=== PATIENT | female | born 1975 | race Caucasian/White ===

== ENCOUNTER → 2016-04-30 | Outpatient (CLI) | payer BC, OTHER ==
[2016-04-30 12:40] LABS: CH 30.4; CHCM 33.1; HCT 37.3 % (34.0-46.0); HDW 2.84; HGB 11.9 gm/dL (11.4-16.0); MCH 29.4 pg (25.0-35.0); MCHC 31.8 g/dL (31.0-37.0); MCV 92.6 fL (80.0-100.0); Mean Platelet Volume 8.1; RBC 4.03 m/uL (3.80-5.40); RDW 14.3 % (11.5-15.5); WBC 12.7 k/uL (3.8-10.6)
[2016-04-30 12:43] LABS: ALT 25 U/L (9-52); AST 17 U/L (14-36); Blood Urea Nitrogen 6 mg/dL (7-17); Non-African American GFR(MDRD) >60 (>60 ml/min/1.73 sqM)
[2016-05-07 15:47] LABS: Mis test requested (Non-blood) 24hr Tot Protein Ur
== END | disposition home or self-care (01) ==
LOC: LABWHC1 11:48
PROVIDERS: ATTEND Obstetrics & Gynecology
DX: O16.9 Unspecified maternal hypertension, unspecified trimester (principal); Z3A.00 Weeks of gestation of pregnancy not specified
CPT/HCPCS: 36415; 81050; 82565; 82570; 84156; 84450; 84460; 84520; 85027

== ENCOUNTER → 2016-05-03 | Outpatient (CLI) | payer BC, OTHER ==
[2016-05-03 12:08] LABS: Glucose 3 Hour, Gest 110 mg/dL
== END | disposition home or self-care (01) ==
LOC: LABWHC1 07:35
PROVIDERS: ATTEND Obstetrics & Gynecology
DX: O99.89 Other specified diseases and conditions complicating pregnancy, childbirth and the puerperium (principal); R73.02 Impaired glucose tolerance (oral); Z3A.00 Weeks of gestation of pregnancy not specified
CPT/HCPCS: 36415; 82951; 82952

== ENCOUNTER → 2016-05-20 | Outpatient (CLI) | payer BC, OTHER ==
[2016-05-20 17:04] LABS: Basophils % (A) 0 %; CH 30.3; Eosinophils # (A) 0.1 k/uL (0-0.7); Eosinophils % (A) 0 %; HDW 2.78; HGB 12.1 gm/dL (11.4-16.0); Luc # (Auto) 0.14; Luc % (Auto) 1; Lymphocytes # (A) 1.1 k/uL (1.0-4.8); Lymphocytes % (A) 9 %; MCH 30.9 pg (25.0-35.0); MCHC 33.5 g/dL (31.0-37.0); MCV 92.2 fL (80.0-100.0); Mean Platelet Volume 7.8; Monocytes # (A) 0.6 k/uL (0-1.0); Monocytes % (A) 5 %; Neutrophils # (A) 9.7 k/uL (1.3-7.7); Neutrophils % (A) 84 %; RDW 14.4 % (11.5-15.5); WBC 11.6 k/uL (3.8-10.6); WBC (Perox) 12.16
[2016-05-20 17:31] LABS: ALT 26 U/L (9-52); AST 20 U/L (14-36); Blood Urea Nitrogen 10 mg/dL (7-17); Non-African American GFR(MDRD) >60 (>60 ml/min/1.73 sqM); Total Bilirubin 0.3 mg/dL (0.2-1.3)
[2016-05-21 11:21] LABS: Bilirubin, Delta 0.2 mg/dL (0.0-0.2)
== END | disposition home or self-care (01) ==
LOC: LABWHC1 16:14
PROVIDERS: ATTEND Obstetrics & Gynecology
DX: O14.93 Unspecified pre-eclampsia, third trimester (principal); Z3A.00 Weeks of gestation of pregnancy not specified
CPT/HCPCS: 36415; 81050; 82247; 82248; 82565; 84156; 84450; 84460; 84520; 85025

== ENCOUNTER → 2020-02-10 | Outpatient (CLI) | payer BC, OTHER | END | disposition home or self-care (01) | LOC: LABWHC1 12:56 | PROVIDERS: ATTEND Family Medicine | DX: Z20.828 Contact with and (suspected) exposure to other viral communicable diseases (principal) | CPT/HCPCS: U0003; C9803 ==

== ENCOUNTER → 2020-02-28 | Outpatient (CLI) | payer BC, OTHER ==
--- NOTE | 2020-02-28 13:04 | XR ---
EXAMINATION TYPE: XR chest 2V DATE OF EXAM: 02/28/2020 COMPARISON: NONE HISTORY: Cough for one month and sore throat today. TECHNIQUE: Frontal and lateral views of the chest are obtained. FINDINGS: There is no focal air space opacity, pleural effusion, or pneumothorax seen. The cardiac silhouette size is within normal limits. The osseous structures are intact. There is LAP-BAND devic e epigastric region noted. IMPRESSION: No suspicious acute pulmonary process.
== END | disposition home or self-care (01) ==
LOC: RADXRMAIN 12:37
PROVIDERS: ATTEND Nurse Practitioner Family
DX: R05 Cough (principal)
CPT/HCPCS: 71046

== ENCOUNTER → 2023-05-07 | Outpatient (CLI) | payer OTHER ==
--- NOTE | 2023-05-07 18:21 | US ---
EXAMINATION TYPE: US pelvic complete DATE OF EXAM: 05/07/2023 COMPARISON: NONE CLINICAL INDICATION: Female, 47 years old with history of N94.6 DYSMENORRHEA, UNSPECIFIED; D25.9; kno wn fibroid for years, patient is now having heavy cycles every month and painful cramping, TECHNIQUE: TA. Transabdominal sonographic images of the pelvis were acquired. Transvaginal sonogra phic images would not be of benefit due to enlarged shadowing fibroid Date of LMP: 2 weeks ago EXAM MEASUREMENTS: Uterus: 13.5 x 8.0 x 9.0 cm Endometrial Stripe: 0.9 cm Right Ovary: 2.8 x 1.8 cm Left Ovary: 2.6 x 2.1 c 1.8 cm 1. Uterus: Anteverted large shadowing left sided fundal fibroid = 5.1 x 5.1 x 5.0cm 2. Endometrium: wnl 3. Right Ovary: wnl 4. Left Ovary: wnl 5. Bilateral Adnexa: wnl 6. Posterior cul-de-sac: wnl IMPRESSION: 1. Uterine fibroid which may contain calcification and shadowing.
== END | disposition home or self-care (01) ==
LOC: RADUSWWP 13:27
PROVIDERS: ATTEND Family Medicine
DX: N94.6 Dysmenorrhea, unspecified (principal); D25.9 Leiomyoma of uterus, unspecified
CPT/HCPCS: 76856

== ENCOUNTER → 2024-01-30 | Outpatient (CLI) | payer OTHER ==
--- NOTE | 2024-01-30 15:48 | CT ---
EXAMINATION TYPE: CT abdomen pelvis w con CT DLP: 1964 mGycm, Automated exposure control for dose reduction was used. DATE OF EXAM: 01/30/2024 3:29 PM COMPARISON: CT abdomen pelvis 12/07/2013, pelvic ultrasound 05/07/2023 CLINICAL INDICATION:Female, 48 years old with history of R19.00 INTRA-ABD AND PELVIC SWELLING; Nausea and vomiting almost every morning x2 years TECHNIQUE: Standard CT of the abdomen and pelvis following the administration of 100 cc of Isovue 3 00 IV contrast material and oral contrast. Coronal and sagittal reformats were performed. FINDINGS: LOWER CHEST: Unremarkable ABDOMEN LIVER: Unremarkable GALLBLADDER AND BILE DUCTS: Unremarkable. PANCREAS: Unremarkable. SPLEEN: Unremarkable. ADRENAL GLANDS: Unremarkable. KIDNEYS AND URETERS: No evidence of hydronephrosis or renal calculus. The kidneys enhance symmetrical ly. Left renal lower pole 1.2 cm cyst. Contrast is demonstrated within both collecting systems on the delayed phase. PELVIS BLADDER: Incompletely distended but grossly unremarkable. REPRODUCTIVE: Bulky anteverted uterus with peripheral calcified myometrial left uterine body 5.5 cm f ibroid. Uterus measures 12.2 x 9.3 x 9.3 cm in AP, TV, CC dimensions. Right ovarian 1.8 cm peripheral ly enhancing likely corpus luteal cyst. ABDOMEN & PELVIS STOMACH AND BOWEL: Postsurgical changes from gastric lap band with reservoir in the epigastric left a nterior abdominal wall. Enteric contrast reaches the ileocecal junction. The appendix is within karan l limits. No evidence of bowel obstruction. PERITONEUM: No evidence of pneumoperitoneum or free fluid. VASCULATURE: No evidence of aortic aneurysm. MUSCULOSKELETAL: No acute osseous abnormalities. Sclerosis around both SI joints. Left L4-L5 facet maria r int arthropathy. LYMPH NODES: No evidence for lymphadenopathy. SOFT TISSUE/ABDOMINAL WALL: Unremarkable IMPRESSION: 1. No acute abdominal/pelvic process. 2. Fibroid changes of the uterus. [facility], , 01/30/2024 3:45 PM
== END | disposition home or self-care (01) ==
LOC: RADCTMAIN 13:18
PROVIDERS: ATTEND Surgery Plastic and Reconstructive Surgery
DX: D25.9 Leiomyoma of uterus, unspecified (principal); R19.00 Intra-abdominal and pelvic swelling, mass and lump, unspecified site
CPT/HCPCS: 74177; Q9967

== ENCOUNTER 2024-02-02 06:40 | Day surgery (SDC) | payer OTHER ==
[~2024-02-02 06:40] MED LIST: LIDOCAINE 1% (10MG/ML) FOR IV START INTRADERMA PRN
--- NOTE | 2024-02-02 06:59 | P.GSHP ---
History of Present Illness H&P Date: 02/02/24 CHIEF COMPLAINT: GERD HISTORY OF PRESENT ILLNESS: The patient is a 48-year-old female who presents reports gastroesophageal reflux disease. Upper endoscopy was offered for further evaluation and management. PAST MEDICAL HISTORY: Please see list. PAST SURGICAL HISTORY: Please see list. MEDICATIONS: Please see list. ALLERGIES: Please see list. SOCIAL HISTORY: No illicit drug use FAMILY HISTORY: No reports of Crohn disease or ulcerative colitis. REVIEW OF ORGAN SYSTEMS: CONSTITUTIONAL: No reports of fevers or chills. GI: Denies any blood in stools or constipation. PHYSICAL EXAM: VITAL SIGNS: Stable GENERAL: Well-developed and pleasant in no acute distress. HEENT: No scleral icterus. Extraocular movements grossly intact. Moist buccal mucosa. NECK: Supple without lymphadenopathy. CHEST: Unlabored respirations. Equal bilateral excursions. CARDIOVASCULAR: Regular rate and rhythm. Distal 2+ pulses. ABDOMEN: Soft, nondistended. MUSCULOSKELETAL: No clubbing, cyanosis, or edema. ASSESSMENT: 1. Gastroesophageal reflux disease PLAN: 1. Recommend proceeding with an upper endoscopy Past Medical History Past Medical History: Hypertension Additional Past Medical History / Comment(s): frequent N/V in the morning, has been going on for couple years, hx. anemia, RLS History of Any Multi-Drug Resistant Organisms: None Reported Past Surgical History: Bariatric Surgery, Hernia Repair Additional Past Surgical History / Comment(s): lap band, cone biopsy Past Anesthesia/Blood Transfusion Reactions: No Reported Reaction Smoking Status: Never smoker Medications and Allergies Home Medications Medication Instructions Recorded Confirmed Type Citalopram Hydrobromide [CeleXA] 40 mg PO DAILY 01/30/24 01/30/24 History Cyanocobalamin [Vitamin B-12] 500 mcg PO DAILY 01/30/24 01/30/24 History Ferrous Sulfate [Feosol] 325 mg PO DAILY 01/30/24 01/30/24 History amLODIPine [Norvasc] 10 mg PO DAILY 01/30/24 01/30/24 History Allergies Allergy/AdvReac Type Severity Reaction Status Date / Time No Known Allergies Allergy Verified 01/30/24 10:34
[2024-02-02] MEDS: IV FLUID CONTINUATION 1,000 ML IV ONE (07:25)
[2024-02-02 07:38] VITALS: TEMP 97
[2024-02-02] MEDS: LACTATED RINGERS 1,000 ML IV SCH (07:39)
[2024-02-02] MEDS ORDERED: PROPOFOL 10 MG/ML 20 ML VIAL IV ONE (07:42)
[2024-02-02] MEDS ORDERED: LIDOCAINE 2% (PF) 20 MG/ML 5 ML VIAL ONE (07:42)
--- NOTE | 2024-02-02 07:59 | P.PCN ---
Date of Procedure: 02/02/24 Description of Procedure: PREOPERATIVE DIAGNOSIS: Diaphragmatic hiatal hernia Gastroesophageal reflux disease. Morbid obesity. POSTOPERATIVE DIAGNOSIS: Gastroesophageal reflux disease. Morbid obesity. Gastritis. Diaphragmatic hiatal hernia OPERATION: Esophagogastroduodenoscopy with biopsies along esophagus, antrum and duodenum SURGEON: Thalia Vides MD ANESTHESIA: MAC. INDICATIONS: The patient is a 48-year-old female who presents with reflux disease. Benefits and risks of the procedure were described. Informed consent was obtained. DESCRIPTION: The patient was brought into the endoscopy suite and laid in the left lateral decubitus position. An Olympus gastroscope was passed along the posterior oropharynx down to the distal esophagus where the squamocolumnar junction was encountered at 39 cm from the incisors. The stomach was entered and no bile reflux was found. Additional findings are listed below. Biopsies with cold forceps were obtained of the antrum. The first through third portion of the duodenum was examined. Retroflexion of the scope confirmed Hill grade 3 lower esophageal valve. The squamocolumnar junction demonstrated LA grade B erosive esophagitis. The stomach was desufflated. The patient tolerated the procedure well. FINDINGS: Squamocolumnar junction 39 cm from the incisors. Diaphragmatic hiatus at 40 cm. Hiatal hernia, 1 cm, sliding-type Hill grade 2 lower esophageal valve. LA grade B erosive esophagitis. Biopsies obtained Biopsies obtained of the duodenum. Chronic gastritis with biopsies obtained. RECOMMENDATIONS: Upper endoscopy as needed. Plan - Discharge Summary Discharge Rx Participant: No New Discharge Prescriptions: Continue Ferrous Sulfate [Iron (65 MG Elemental)] 325 mg PO DAILY Cyanocobalamin [Vitamin B-12] 500 mcg PO DAILY amLODIPine [Norvasc] 10 mg PO DAILY Citalopram Hydrobromide [CeleXA] 40 mg PO DAILY Discharge Medication List Citalopram Hydrobromide [CeleXA] 40 mg PO DAILY 01/30/24 [History] Cyanocobalamin [Vitamin B-12] 500 mcg PO DAILY 01/30/24 [History] Ferrous Sulfate [Iron (65 MG Elemental)] 325 mg PO DAILY 01/30/24 [History] amLODIPine [Norvasc] 10 mg PO DAILY 01/30/24 [History] Follow up Appointment(s)/Referral(s): Thalia Vides MD [STAFF PHYSICIAN] - 02/25/24 3:00 pm Patient Instructions/Handouts: Gastritis (DC), GERD (Gastroesophageal Reflux Disease) (ED), Diet for Stomach Ulcers and Gastritis (ED) Discharge Disposition: HOME SELF-CARE
[2024-02-02 08:22] VITALS: BP 122/79; PULSE 77; RESP 16
== END 2024-02-02 09:19 | disposition home or self-care (01) ==
LOC: ORWHC2ENDO 06:40
PROVIDERS: ATTEND Surgery Plastic and Reconstructive Surgery
DX: K44.9 Diaphragmatic hernia without obstruction or gangrene
CPT/HCPCS: 43239; 81025; 88305